=== PATIENT | female | born 1970 | race Two or more races ===

== ENCOUNTER 2020-10-27 14:12 | Emergency (ER) | payer SELFPAY ==
[~2020-10-27] VITALS: Ht 165.1 cm; Wt 81.6 kg
[2020-10-27 14:25] VITALS: BP 111/73
--- NOTE | 2020-10-27 14:28 | NUR ---
TO LOBBY A/ BED AMBULATORY
[2020-10-27] MEDS ORDERED: FLUORESCEIN OPTH STRIP 1 MG OP ONE (14:40)
[2020-10-27] MEDS ORDERED: TETRACAINE HCL/PF 0.5% OPTH 4 ML BTL OP ONE (14:40)
--- NOTE | 2020-10-27 14:55 | NUR ---
EYE ASSESMENT RIGHT 20/50 LEFT 20/20 BOTH 20/20
[2020-10-27] MEDS ORDERED: ACETAMINOPHEN EXTRA STRENGTH 500 MG TAB PO ONE (15:05)
--- NOTE | 2020-10-27 15:25 | NUR ---
Dr. Underwood is evaluating the patient at bedside.
[2020-10-27] MEDS ORDERED: ERYT5OIN51 OP (15:35)
[2020-10-27 15:47] VITALS: BP 111/73
--- NOTE | 2020-10-27 15:47 | NUR ---
NO NURSING CARE RENDERED.
--- NOTE | 2020-10-27 15:50 | NUR ---
Patient discharged with v/s stable. Written and verbal after care instructions given and explained. Patient alert, oriented and verbalized understanding of instructions. Ambulatory with steady gait. All questions addressed prior to discharge. ID band removed. Patient advised to follow up with PMD. Rx of ERYTHROMYCIN BASE given. Patient educated on indication of medication including possible reaction and side effects. Opportunity to ask questions provided and answered.
== END 2020-10-27 15:44 | disposition home or self-care (01) ==
LOC: MED 14:12
DX: S05.01XA Injury of conjunctiva and corneal abrasion without foreign body, right eye, initial encounter (principal); H11.31 Conjunctival hemorrhage, right eye; W22.09XA Striking against other stationary object, initial encounter; Y93.89 Activity, other specified; Y92.89 Other specified places as the place of occurrence of the external cause; Y99.8 Other external cause status
CPT/HCPCS: 99283